=== PATIENT | male | born 1950 | race Two or more races ===

== ENCOUNTER 2016-07-21 23:17 | Emergency (ER) | payer SELFPAY ==
[~2016-07-21 23:17] MED LIST: ASPIRIN81 M1 PO; CLINDAMYCIN HC300 M2 PO; COLACE100 M1 PO; GLIPIZIDE10 M2 PO; GLUCOSE PO; HUMULIN N100 UNIT/2 SC; LEVOTHYROXINE200 MC4 PO; METFORMIN HCL1000 M2 PO; MOBIC15 M2 PO; NOVOLIN R100 UNIT/1; NOVOLIN R100 UNIT/1 SC; TYLENOL325 M2 PO
[2016-07-21] MEDS ORDERED: AMARYL4 M1 PO (23:25)
[2016-07-22 00:27] LABS: BASO % 0.1 % (0-2); EOS % 2.4 % (0-7); EOSINOPHIL ABSOLUTE COUNT 0.2 tho/cmm (0.0-0.7); HCT-HEMATOCRIT 44.8 % (36.0-53.5); HGB-HEMOGLOBIN 15.5 gm/dl (13.5-17.0); IMMATURE GRANULOCYTES ABSOLUTE 0.01 tho/cmm (0-0.03); IMMATURE GRANULOCYTES PERCENT 0.1 % (0-0.3); MCH (MEAN CORPUSCULAR HGB) 29.2 pg (28.0-32.0); MCHC MEAN CORPUSCULAR HGB CONC 34.6 % (32.0-36.0); MCV (MEAN CELL VOLUME) 84.4 fl (82.0-96.0); MEAN PLATELET VOLUME 10.1 cmc (9.4-12.4); MONO % 6.3 % (0-12); MONOCYTE ABSOLUTE COUNT 0.6 tho/cmm (0.0-1.2); NEUTROPHIL ABSOLUTE COUNT 6.6 tho/cmm (1.6-8.0); NEUTROPHIL-AUTOMATED 6.6 tho/cmm (1.6-8.0); NEUTROPHILS % 70.1 % (40-80); PLATELET COUNT 91 tho/cmm (150-450); RED BLOOD COUNT 5.31 mil/cmm (4.40-5.70); RED CELL DISTRIBUTION WIDTH 13.8 % (12.4-16.4); WHITE BLOOD COUNT 9.4 tho/cmm (4.0-10.0)
[2016-07-22 00:37] LABS: URINE LEUKOCYTE ESTERASE NEGATIVE (NEG); URINE PROTEIN SMALL (NEG)
[2016-07-22 00:41] LABS: URINE APPEARANCE HAZY; URINE BILIRUBIN NEGATIVE (NEG); URINE BLOOD NEGATIVE (NEG); URINE COLOR YELLOW; URINE GLUCOSE (UA) MODERATE (NEG); URINE KETONE NEGATIVE (NEG); URINE NITRITE NEGATIVE (NEG)
[2016-07-22 00:58] LABS: ALB/GLOB RATIO 1.1 (0.8-2.0); ALBUMIN 4.2 g/dl (3.5-5.0); ALKALINE PHOSPHATASE 83 U/L (33-138); ALT/SGPT 36 U/L (12-78); BILIRUBIN,TOTAL 0.7 mg/dl (0.0-1.5); BLOOD UREA NITROGEN 24 mg/dl (6-24); CALCIUM 9.1 mg/dl (8.5-10.5); CARBON DIOXIDE-VENOUS 23 mmol/L (22-32); CHLORIDE 104 mmol/l (96-110); CREATININE 1.01 mg/dl (0.60-1.30); GLUCOSE 269 mg/dL (70-110); LIPASE 93 U/L (73-393); SODIUM 136 mmol/L (135-145); eGFR VALUE FOR BLACK >90 mL/Min
[2016-07-22 00:59] LABS: ANION GAP 13 mmol/L (0-20); AST/SGOT 27 U/L (10-40); POTASSIUM 3.9 mmol/L (3.7-5.1)
[2016-07-22] MEDS ORDERED: LOMOTIL 2.5-0.1 EACH PO (01:50)
[2016-07-22] MEDS ORDERED: ZOFRAN4 M2 PO (01:50)
== END 2016-07-22 01:50 ==
LOC: EDMED 23:17
PROVIDERS: Family Medicine
DX: A08.4 Viral intestinal infection, unspecified (principal); D69.6 Thrombocytopenia, unspecified; E11.9 Type 2 diabetes mellitus without complications; I10 Essential (primary) hypertension; Z79.82 Long term (current) use of aspirin; Z79.890 Hormone replacement therapy; Z79.899 Other long term (current) drug therapy
CPT/HCPCS: C9113; J2405; J7030